=== PATIENT | female | born 1995 | race Caucasian/White ===

== ENCOUNTER 2016-12-22 09:42 | Outpatient (CLI) | payer OTHER ==
--- NOTE | 2016-12-22 12:29 | DIAGNOSTIC IMAGING REPORT ---
PROCEDURE: US OB 1ST TRIMESTER W/TRANSVAG INDICATION: CHECK VIABLITY TECHNIQUE: Pierre scale, color, and spectral Doppler transabdominal sonographic images of the first trimester gravid uterus were obtained. COMPARISON: OB ultrasound 03/15/2015 FINDINGS: TRANSABDOMINAL SCANS: Single nonviable intrauterine . By sac size would be at 6 weeks and 1 day. Retained products of conception are seen in the lower uterine segment and the cervix. Gestational sac measures 1.2 cm which corresponds to 6 weeks and 1 day. IMPRESSION: 1. Single nonviable intrauterine . Retained products of conception in the lower uterine segment and cervix.
== END 2016-12-22 23:00 ==
LOC: US SRH 09:42
DX: O02.89 Other abnormal products of conception (principal)